=== PATIENT | male | born 1990 | race Hispanic/Latino ===

== ENCOUNTER 2025-04-29 03:45 | Emergency (ER) | payer OTHER ==
[2025-04-29] MEDS ORDERED: Ibuprofen 800 MG TAB ONE (04:41)
== END 2025-04-29 05:37 ==
LOC: EEVIPCON 03:45 → BURERS 03:45
DX: S06.0X0A Concussion without loss of consciousness, initial encounter (principal); S00.03XA Contusion of scalp, initial encounter; S16.1XXA Strain of muscle, fascia and tendon at neck level, initial encounter; R29.701 NIHSS score 1; W22.8XXA Striking against or struck by other objects, initial encounter
CPT/HCPCS: 70450